=== PATIENT | male | born 1970 | race Caucasian/White ===

== ENCOUNTER 2023-08-19 10:17 | Day surgery (SDC) | payer BC ==
--- NOTE | 2023-08-19 08:45 | HP ---
DATE OF SURGERY: 08/19/2023 HISTORY OF PRESENT ILLNESS: The patient is a 53-year-old had a flare up of rectal bleeding recently. He had some pain. He had Cologuard last year. Family history negative for colon cancer. He has history of hemorrhoids for 10 or 15 years. PAST MEDICAL HISTORY: PAST SURGICAL HISTORY: He denied any prior surgeries. MEDICATIONS: Centrum Silver for men. Vitamin D, Imodium A-D, dicyclomine. ALLERGIES: NKDA. FAMILY HISTORY: Negative for colon cancer. SOCIAL HISTORY: History of smoking. He does drink alcohol. REVIEW OF SYSTEMS: Twelve systems reviewed. Negative or noncontributory as above and per preadmission questionnaire. PHYSICAL EXAMINATION: Height 5 feet 10 inches. BMI 25.8. GENERAL: No acute distress. HEENT: Sclerae nonicteric. EOMI. Oral mucous membranes moist. NECK: No JVD. CHEST: Equal excursion, nonlabored breathing. CVS: Regular rate and rhythm. ABDOMEN: Soft. No tenderness. EXTREMITIES: No significant edema. NEURO: Alert, oriented, moving extremities symmetrically. RECTAL: Confirmed internal and external hemorrhoids. No external thrombosis on office visit. Some prolapsing internal hemorrhoids. IMPRESSION: Prolapsing internal and external hemorrhoids, some rectal bleeding. I recommend colonoscopy. Options of banding trial versus excisional therapy. We had a long discussion with the patient. He would like to try the banding trial first. He understands if he fails to improve or his hemorrhoids progress, he might need consideration of excisional therapy. He understands the banding does not treat the external hemorrhoids or tags. Otherwise, will schedule outpatient colonoscopy possible internal hemorrhoid banding. General risk of bleeding or infection, risk of bowel injury or perforation possibly requiring further procedure, risk of missed or nondiagnosis or incomplete exam possibly requiring barium enema, other studies or procedures, general risk of anesthesia or sedation, risk of bowel prep, risk of progression of hemorrhoid disease, risk of sphincter spasm or irritability, remote risk of infection possibly requiring major procedure. Risk of worsening hemorrhoid issue possibly requiring other procedures such as banding, excision or other therapy. He understands and agrees to the planned procedure. Will proceed with outpatient colonoscopy and internal hemorrhoid banding.
[2023-08-19] MEDS ORDERED: Versed 2 MG/2 ML Injection ONE (12:10)
[2023-08-19] MEDS ORDERED: DIPRIVAN 200 MG/20 ML IV ONE ×2 (12:10→12:16)
[2023-08-19] MEDS ORDERED: Xylocaine-Mpf 2% 5 Ml Vial ONE (12:10)
[2023-08-19] MEDS: Lactated Ringers 1,000 ML IV SCH (12:23)
[2023-08-19 13:21] VITALS: RESP 16; O2SAT 99
[2023-08-19 13:42] VITALS: BP 134/82; PULSE 63; TEMP 97.1
--- NOTE | 2023-08-20 09:45 | OP ---
SURGERY DATE/TIME: 08/19/2023 1210 PREOPERATIVE DIAGNOSES: 1) History of rectal bleeding. 2) Prolapsing internal and external hemorrhoids. POSTOPERATIVE DIAGNOSES: 1) History of rectal bleeding. 2) Prolapsing internal and external hemorrhoids. 3) ASA Class II. 4) Prep was fair on the limited side. 5) Withdrawal time was about 12 minutes. PROCEDURES: 1) Colonoscopy to cecum. 2) Hot biopsy polypectomy cecal polyp. 3) Hot biopsy polypectomy sigmoid colon polyp. 4) Internal hemorrhoid banding x3 columns (four bands placed). SURGEON: Dr. Obed Gtz M.D. ANESTHESIA: MAC. ESTIMATED BLOOD LOSS: Minimal. INDICATIONS: As noted above. Risks and benefits explained including the risk of progression of hemorrhoid disease possibly requiring other procedures or even excisional therapy down the road but not limited to. Consent was obtained. DESCRIPTION OF PROCEDURE AND FINDINGS: The patient is taken to the endoscopy suite. MAC anesthesia induced. After official time out and no disagreement with planned procedure, digital rectal exam revealed internal and external hemorrhoids and prolapsing internal component and some loose skin from having external hemorrhoid in the past. No other intrarectal mass is palpated at this time. Video colonoscope inserted and passed up through the slightly tortuous sigmoid, descending, transverse and ascending colon. With the external pressure the scope was able to be passed around to the cecum. Appendiceal orifice and ileocecal valve well visualized and photo documented. There was a small polyp in the cecum removed with hot biopsy polypectomy. Good hemostasis noted. The prep overall was fair on the limited side. He had a large amount of liquidy semisolid stool throughout the colon this is suctioned irrigated as clear as possible but did limit the exam for small lesions. The scope is slowly and carefully withdrawn. There were no signs of any large polyps, masses or obstructing lesion. There is another small sigmoid colon polyp removed with hot biopsy polypectomy in piecemeal fashion. The sigmoid colon polyp removed in piecemeal fashion with hot biopsy polypectomy. Otherwise on retroflex, he had the internal and external hemorrhoids. The scope was withdrawn. The patient tolerated the procedure well. Once the light and the half-alonso retractor was available carefully inspected and the largest hemorrhoid was seen off to the left. With the half-alonso retractor carefully inserted, a band was placed at the top edge of the internal hemorrhoid with a good tuft of tissue noted. This one did require second band this column. It was seen to be spread out more with a good tuft of tissue noted on the top of the hemorrhoid. Appeared to have adequate hemostasis. This is then repeated in the right posterior. Again, good tuft of tissue top edge of the internal hemorrhoid and band fired good tuft of tissue noted. This is repeated in the right anterior position where the hemorrhoid is a little bit smaller. It was also a little floppy and prolapsing internal hemorrhoids. The band was fired at the base and top edge of the hemorrhoid hopefully acquiring a good amount of material. Appeared to have adequate hemostasis. There were no immediate complications. As I was called out to the floor, I will be speaking to the family members a little bit later. Continue high fiber diet, avoid straining at the time of bowel movement, may pass a little bit of bleeding and may have some pressure sensation. Tylenol for aches and pains. I will see him back in the office next week.
== END 2023-08-19 13:50 | disposition home or self-care (01) ==
LOC: SDC 10:17
PROVIDERS: ATTEND Surgery
DX: Z87.19 Personal history of other diseases of the digestive system (principal); K64.8 Other hemorrhoids; D12.0 Benign neoplasm of cecum; D12.5 Benign neoplasm of sigmoid colon
CPT/HCPCS: J2250; J2704